=== PATIENT | female | born 1950 | race Caucasian/White ===

== ENCOUNTER → 2017-09-12 | Outpatient (CLI) | payer MEDICARE, BC ==
--- NOTE | 2017-09-12 08:08 | XR ---
EXAMINATION TYPE: XR chest 2V DATE OF EXAM: 09/12/2017 COMPARISON: NONE HISTORY: Unspecified bronchitis per order. TECHNIQUE: Frontal and lateral views of the chest are obtained. FINDINGS: There is no focal air space opacity, pleural effusion, or pneumothorax seen. The cardiac silhouette size is within normal limits. The osseous structures are intact. IMPRESSION: No suspicious acute cardiopulmonary process.
== END | disposition home or self-care (01) ==
LOC: RADXRMAIN 06:57
PROVIDERS: ATTEND Obstetrics & Gynecology
DX: J40 Bronchitis, not specified as acute or chronic (principal)
CPT/HCPCS: 71046

== ENCOUNTER → 2017-11-06 | Outpatient (CLI) | payer MEDICARE, BC | END | disposition home or self-care (01) | LOC: LABWHC1 09:41 | PROVIDERS: ATTEND Family Medicine | DX: E03.9 Hypothyroidism, unspecified (principal) | CPT/HCPCS: 36415; 84443 ==

== ENCOUNTER 2017-12-09 11:17 | Emergency (ER) | payer MEDICARE, BC ==
--- NOTE | 2017-12-09 11:51 | ED ---
General Adult HPI - General Chief complaint: Extremity Injury, Upper Stated complaint: rt wrist injury Time Seen by Provider: 12/09/17 11:40 Source: patient, RN notes reviewed Mode of arrival: ambulatory Limitations: no limitations - History of Present Illness Initial comments: Patient is a 67-year-old female presenting to the emergency room today with chief complaint of injury to the right wrist that occurred approximately one hour ago. Patient does admit that she was having urinary she was pulling a tree branch when her left hand slipped and she fell down to the right side. She states her hand was tucked closer to the body. Patient omits pain to the right wrist worse with certain movements. Patient denies any head injury or loss conscious. Denies any other complaints or symptoms. Patient denies any recent fever, chills, shortness of breath, chest pain, back pain, abdominal pain , nausea or vomiting, numbness or tingling, headaches or visual changes, or any other complaints. - Related Data Home Medications Medication Instructions Recorded Confirmed Estrogens, Conjugated [Premarin] 0.45 mg PO DAILY 02/27/14 02/28/14 Unithyroid 100 mcg PO DAILY 02/27/14 02/28/14 Previous Rx's Medication Instructions Recorded Meclizine [Antivert] 12.5 mg PO BID PRN #60 tablet 02/28/14 Allergies Allergy/AdvReac Type Severity Reaction Status Date / Time codeine Allergy Rapid Verified 12/09/17 11:27 Heart Rate Review of Systems ROS Statement: Those systems with pertinent positive or pertinent negative responses have been documented in the HPI. ROS Other: All systems not noted in ROS Statement are negative. Past Medical History Past Medical History: Mitral Valve Prolapse (MVP), Thyroid Disorder Additional Past Medical History / Comment(s): vertigo, History of Any Multi-Drug Resistant Organisms: None Reported Past Surgical History: Hysterectomy Additional Past Surgical History / Comment(s): myomectomy Past Anesthesia/Blood Transfusion Reactions: No Reported Reaction Past Psychological History: No Psychological Hx Reported Smoking Status: Never smoker Past Alcohol Use History: None Reported Past Drug Use History: None Reported - Past Family History Mother Family Medical History: No Reported History General Exam - General Exam Comments Initial Comments: General: The patient is awake and alert, in no distress, and does not appear acutely ill. Neck: The neck is supple, there is no tenderness or JVD. Musculoskeletal: Patient has normal appearance right wrist no obvious deformity. She shows limited range motional flexion and extension due to pain. She is able to pronate and supinate. Patient has no tenderness to the right shoulder, right elbow or down into the right hand. She is locally tender over the distal right radius. Radial pulses 2+. Neurological: A&O x 3. CN II-XII intact, There are no obvious motor or sensory deficits. Coordination appears grossly intact. Speech is normal. Skin: Skin is warm and dry and no rashes or lesions are noted. Psychiatric: Normal mood and affect. Limitations: no limitations Course Vital Signs 12/09/17 11:25 Temperature 97.8 F Pulse Rate 60 Respiratory 20 Rate Blood Pressure 125/58 O2 Sat by Pulse 99 Oximetry Medical Decision Making - Medical Decision Making Since x-ray reviewed does show a distal radius fracture nondisplaced. Results were discussed with the patient. Patient has been placed in a short arm volar OCL. Neurovascular rechecked and intact. Patient will be discharged home to follow-up with orthopedics. Advised to return if any symptoms increase worsen or for any other concerns Disposition Clinical Impression: Right wrist fracture Disposition: HOME SELF-CARE Condition: Good Additional Instructions: Please leave splint in place until follow-up appointment with orthopedics over the next 2 days. Please return to emergency room for any other concerns. Is patient prescribed a controlled substance at d/c from ED?: No Referrals: Kurt Villafana MD [Primary Care Provider] - 1-2 days Chago Ortiz DO [Doctor of Osteopathic Medicine] - 1-2 days Time of Disposition: 12:32
--- NOTE | 2017-12-09 12:38 | XR ---
EXAMINATION TYPE: XR wrist complete RT , 4 VIEWS DATE OF EXAM ORDERED: 12/09/2017 HISTORY: Pain. COMPARISON: None. FINDINGS: There is a minimally displaced, intra-articular fracture of the distal radius. No definite ulnar fracture is seen. There are severe degenerative changes in the first and second carpal metacarpal joints as well as a t riscaphe joint. IMPRESSION: 1. INTRA-ARTICULAR FRACTURE OF THE DISTAL RIGHT RADIUS. 2. SEVERE DEGENERATIVE CHANGE. CODE A: INITIAL ENCOUNTER FOR CLOSED FRACTURE.
[2017-12-09 12:44] VITALS: BP 110/60; PULSE 69; RESP 18; TEMP 97.9
== END 2017-12-09 12:55 | disposition home or self-care (01) ==
LOC: EC 11:17
DX: S52.571A Other intraarticular fracture of lower end of right radius, initial encounter for closed fracture (principal); Z79.899 Other long term (current) drug therapy; Z88.5 Allergy status to narcotic agent; W01.0XXA Fall on same level from slipping, tripping and stumbling without subsequent striking against object, initial encounter; Y92.096 Garden or yard of other non-institutional residence as the place of occurrence of the external cause
CPT/HCPCS: 29125; 99283

== ENCOUNTER → 2020-01-15 | Outpatient (CLI) | payer MEDICARE ==
[2020-01-15 08:25] LABS: Basophils % (A) 1 %; Eosinophils # (A) 0.1 k/uL (0-0.7); Eosinophils % (A) 2 %; HGB 14.3 gm/dL (11.4-16.0); Lymphocytes # (A) 0.6 k/uL (1.0-4.8); Lymphocytes % (A) 18 %; MCH 30.1 pg (25.0-35.0); MCHC 31.7 g/dL (31.0-37.0); MCV 94.9 fL (80.0-100.0); Mean Platelet Volume 7.9; Monocytes # (A) 0.2 k/uL (0-1.0); Monocytes % (A) 6 %; Neutrophils # (A) 2.4 k/uL (1.3-7.7); Neutrophils % (A) 72 %; Platelet Count 122 k/uL (150-450); RBC 4.74 m/uL (3.80-5.40); RDW 13.2 % (11.5-15.5); WBC 3.3 k/uL (3.8-10.6)
[2020-01-15 12:05] LABS: African American GFR (CKD) 85.4 (60.0-200.0); Albumin 4.3 g/dL (3.80-4.90); Albumin/Globulin Ratio 2.05 (1.60-3.17); Anion Gap 9.8 mmol/L (4.00-12.00); BUN/Creat Ratio 17.5 Ratio (12.00-20.00); Calcium 9.1 mg/dL (8.7-10.3); Carbon Dioxide 29.2 mmol/L (21.6-31.8); Chol/HDL Ratio 2.29; Globulin 2.1 g/dL (1.6-3.3); LDL Cholesterol,Calculated 80.4 mg/dL (0.0-131.0); Non-African American GFR(CKD) 73.7 (60.0-200.0); Total Bilirubin 0.5 mg/dL (0.3-1.2); Total Protein 6.4 g/dL (6.2-8.2); VLDL Calculation 21.6 mg/dL (5.00-40.00)
== END | disposition home or self-care (01) ==
LOC: LABWHC1 07:57
PROVIDERS: ATTEND Family Medicine
DX: Z00.00 Encounter for general adult medical examination without abnormal findings (principal); E55.9 Vitamin D deficiency, unspecified; E03.8 Other specified hypothyroidism; E78.41 Elevated Lipoprotein(a)
CPT/HCPCS: 36415; 80053; 80061; 82306; 84443; 85025

== ENCOUNTER → 2022-10-19 | Outpatient (CLI) | payer MEDICARE ==
[2022-10-19 23:50] LABS: ALT 18 U/L (8-44); AST 25 U/L (13-35); Albumin 4.4 d/dL (3.8-4.9); Alkaline Phosphatase 100 U/L (41-126); Calcium 9.8 mg/dL (8.7-10.3); Carbon Dioxide 26.8 mmol/L (21.6-31.8); Chloride 104 mmol/L (96-109); Globulin 2.2 d/dL (1.6-3.3); Glucose 105 mg/dL (70-110); Potassium 4.4 mmol/L (3.5-5.5); Sodium 140 mmol/L (135-145); Total Bilirubin <0.2 mg/dL (0.3-1.2); Total Protein 6.6 d/dL (6.2-8.2)
== END | disposition home or self-care (01) ==
LOC: LABWHC1 14:15
PROVIDERS: ATTEND Internal Medicine Endocrinology, Diabetes & Metabolism
DX: E21.3 Hyperparathyroidism, unspecified (principal)
CPT/HCPCS: 36415; 80053; 82306; 83970

== ENCOUNTER → 2023-12-13 | Outpatient (CLI) | payer MEDICARE ==
--- NOTE | 2023-12-13 15:49 | BMR ---
EXAM DATE: 12/13/2023 EXAM DESCRIPTION: MRI-Breast Bilat (W/WO Contrast) INDICATION: High-risk screening. COMPARISON: Prior screening mammogram dated 02/20/2023 and 01/27/2022 CONTRAST: 5.4 Cc Gadavist contrast material. TECHNIQUE: Multi sequence multiplanar MR imaging of the breasts was obtained. Subsequently, after the uneventful intravenous administration of Gadavist contrast material, 6 dynamic sequences were then obtained. Post processing was performed utilizing a [employer] CAD workstation. FINDINGS: The breasts are composed of heterogeneous fibroglandular tissue. There is mild background parenchymal enhancement identified. No axillary or internal mammary lymphadenopathy. No focal skin thickening or nipple retraction. The bone marrow signal intensity is unremarkable. T2 weighted images demonstrated no dominant cystic lesion in either breast. Post contrast images demonstrated no abnormal enhancement in either breast to suggest malignancy. There is no abnormal signal or enhancement in the chest wall or subcutaneous tissue. IMPRESSION: 1. No MR evidence of malignancy in either breast. 2. No axillary or internal mammary lymphadenopathy. Final assessment: BI-RADS category 2: Benign findings MTDD
== END | disposition home or self-care (01) ==
LOC: RADMRIMAIN 06:45
PROVIDERS: ATTEND Obstetrics & Gynecology Gynecology
DX: R92.333 Mammographic heterogeneous density, bilateral breasts
CPT/HCPCS: 77049